=== PATIENT | female | born 1990 ===

== ENCOUNTER 2020-01-13 22:11 | Inpatient (IN) | payer MEDICAID ==
[2020-01-13] MEDS ORDERED: Misoprostol 200 MCG Tab PO PRN (23:37)
[2020-01-13] MEDS ORDERED: Water For Irrigation,Sterile 1,000 ML Container IRR PRN (23:37)
[2020-01-13] MEDS ORDERED: Sodium Chloride 0.9% 10 ML Syringe FLUSH PRN (23:37)
[2020-01-13] MEDS ORDERED: Sodium Chloride 0.9% 10 ML SDV IV PRN (23:37)
[2020-01-13] MEDS ORDERED: Ondansetron 4 MG/2 ML SDV IVPUSH PRN (23:37)
[2020-01-13] MEDS ORDERED: Methylergonovine 0.2 MG/1 ML Amp IM PRN (23:37)
[2020-01-13] MEDS ORDERED: Sodium Chloride 0.9% 2.5 ML Syringe FLUSH PRN (23:37)
[2020-01-13] MEDS ORDERED: Butorphanol 1 MG/ML SDV IVPUSH PRN (23:37)
[2020-01-13] MEDS ORDERED: Carboprost Tromethamine 250 MCG/1 ML Amp IM PRN (23:37)
[2020-01-13] MEDS ORDERED: Lidocaine 1% 50 ML MDV INJECT PRN (23:37)
[2020-01-13] MEDS ORDERED: Tranexamic Acid 1,000 MG in Sodium Chloride 0.9% 100 ML IV PRN (23:37)
[2020-01-13] MEDS ORDERED: Misoprostol 25 MCG (1/4 of 100 MCG) Tab VAG PRN ×2 (23:40)
[2020-01-13] MEDS ORDERED: Terbutaline 1 MG/ML SDV SUBCUT PRN (23:40)
[2020-01-13] MEDS ORDERED: Oxytocin/0.9 % Sodium Chloride 30 UNIT/500 ML BAG IV SCH ×2 (23:45)
[2020-01-13] MEDS ORDERED: Lactated Ringers 1,000 ML IV SCH (23:45)
[2020-01-14] MEDS ORDERED: Witch Hazel Medicated Pads 40/Jar TOP PRN (10:19)
[2020-01-14] MEDS ORDERED: Bisacodyl 10 MG Supp RECTAL PRN (10:19)
[2020-01-14] MEDS ORDERED: Ibuprofen 400 MG Tab PO PRN (10:19)
[2020-01-14] MEDS ORDERED: Benzocaine/Menthol 20%-0.5% Spray 78 GM Cannister TOP PRN (10:19)
[2020-01-14] MEDS ORDERED: Acetaminophen 500 MG Tab PO PRN ×2 (10:19)
[2020-01-14] MEDS ORDERED: Docusate Sodium 100 MG Cap PO PRN (10:19)
[2020-01-14] MEDS ORDERED: Lanolin 100% Cream 7 GM Tube TOP PRN (10:19)
[2020-01-14] MEDS ORDERED: Ibuprofen 800 MG Tab ONE (10:34)
[2020-01-14] MEDS ORDERED: Benzocaine/Menthol 20%-0.5% Spray 78 GM Cannister ONE (10:34)
[2020-01-14] MEDS ORDERED: Witch Hazel Medicated Pads 40/Jar TOP ONE (10:35)
[2020-01-14] MEDS: Ibuprofen 800 MG Tab PO PRN ×2 (10:38→18:32)
--- NOTE | 2020-01-14 19:15 | OR ---
SURGEON: Guillaume Ramirez MD DATE OF PROCEDURE: 01/13/2020 INDICATION FOR PROCEDURE: A 29-year-old G4, P0-2-1-2, presenting for scheduled induction of labor at 39 weeks and 0 days. The patient has a history of 2 prior deliveries at 36 weeks and 31 weeks. This was noted to have a short cervix and received weekly Wheeler injections until 36 weeks. The patient had otherwise uncomplicated . She is GBS negative. She received 2 doses of Cytotec for induction and started progressing quickly on her own to fully dilated. Cat 1 tracing with early decels. PREOPERATIVE DIAGNOSES: 1. Carpenter intrauterine at 39 weeks and 0 days. 2. History of delivery. POSTOPERATIVE DIAGNOSES: 1. Carpenter intrauterine at 39 weeks and 0 days. 2. History of delivery. PROCEDURE PERFORMED: Normal spontaneous vaginal delivery. ANESTHESIA: None. FINDINGS: Viable female . scores of 8 and 9. Weight of 3180g. ESTIMATED BLOOD LOSS: 200 mL. DESCRIPTION OF PROCEDURE: The patient pushed with contractions for approximately 20 minutes with good descent. head delivered over an intact perineum in occiput posterior position, restituted ROT. Anterior shoulder delivered easily followed by posterior shoulder and then remaining body. The baby was pink, crying, and moving all extremities after delivery and placed on maternal chest. Baby was evaluated by awaiting nursery staff. The umbilical cord was clamped and cut after 60 seconds and no longer pulsating. The umbilical cord gases were obtained. Gentle traction was applied to the umbilical cord, and with maternal pushing, the placenta delivered. It was examined and found to be intact with 3- vessel cord. Fundal massage was performed and bleeding was light, and the fundus was below the umbilicus. Perineum was examined and no lacerations were noted. The patient tolerated the procedure well and was given care instructions. ZULEIMA / ADRIENNE /[id number]
[2020-01-15] MEDS: Ibuprofen 800 MG Tab PO PRN (01:18)
--- NOTE | 2020-01-15 07:42 | PCM.PNPP ---
- General Info Date of Service: 01/15/20 Functional Status: Reports: Pain Controlled, Tolerating Diet, Ambulating, Urinating - Review of Systems General: Reports: No Symptoms HEENT: Reports: No Symptoms Pulmonary: Reports: No Symptoms Cardiovascular: Reports: No Symptoms Gastrointestinal: Reports: No Symptoms Genitourinary: Reports: No Symptoms Musculoskeletal: Reports: No Symptoms Skin: Reports: No Symptoms Neurological: Reports: No Symptoms Psychiatric: Reports: No Symptoms - Patient Data Vital Signs - Most Recent: Last Vital Signs Temp 36.4 C 01/15/20 01:35 Pulse 75 01/14/20 15:00 Resp 15 01/15/20 01:35 BP 116/58 L 01/15/20 01:35 Pulse Ox 96 01/15/20 01:35 Weight - Most Recent: 199 lb Lab Results - Last 24 Hours: Laboratory Results - last 24 hr 01/14/20 01/15/20 Range/Units 09:26 06:16 Hgb 11.2 L (12.0-16.0) g/dL Hct 34.7 L (36.0-46.0) % Cord ABG pH 7.157 L (7.18-7.38) Cord ABG Base Excess -7 (-10--2) Cord VBG pH 7.336 (7.25-7.45) Cord VBG Base Excess -5 (-10--2) Med Orders - Current: Current Medications Acetaminophen (Tylenol Extra Strength) 500 mg PO Q4H PRN PRN Reason: Pain Acetaminophen (Tylenol Extra Strength) 1,000 mg PO Q4H PRN PRN Reason: Pain Benzocaine/Menthol (Dermoplast Pain Relief 20%-0.5% [place]) 78 gm TOP ASDIRECTED PRN PRN Reason: Perineal Comfort Measure Last Admin: 01/14/20 10:39 Dose: 1 canister Documented by: Bisacodyl (Dulcolax) 10 mg RECTAL ONETIME PRN PRN Reason: Constipation Butorphanol Tartrate (Stadol) 1 mg IVPUSH Q1H PRN PRN Reason: Pain Carboprost Tromethamine (Hemabate Ds) 250 mcg IM ASDIRECTED PRN PRN Reason: Post Hemorrhage Docusate Sodium (Colace) 100 mg PO BID PRN PRN Reason: Constipation Emollient Ointment (Lansinoh Hpa) 0 gm TOP ASDIRECTED PRN PRN Reason: Sore Nipples Oxytocin/Sodium Chloride (Oxytocin 30 Unit/500 Ml-Ns) 30 unit in 500 mls @ 999 mls/hr IV TITRATE ROSHAN Last Admin: 01/14/20 09:26 Dose: 500 mls/hr Documented by: Tranexamic Acid 1,000 mg/ (Sodium Chloride) 110 mls @ 660 mls/hr IV ONETIME PRN PRN Reason: Bleeding Lactated Ringer's (Ringers, Lactated) 1,000 mls @ 150 mls/hr IV ASDIRECTED ROSHAN Oxytocin/Sodium Chloride (Oxytocin 30 Unit/500 Ml-Ns) 30 unit in 500 mls @ 2 mls/hr IV TITRATE ROSHAN; Protocol Ibuprofen (Motrin) 400 mg PO Q4H PRN PRN Reason: Pain Ibuprofen (Motrin) 800 mg PO Q6H PRN PRN Reason: Pain Last Admin: 01/15/20 01:18 Dose: 800 mg Documented by: Lidocaine HCl (Xylocaine 1%) 50 ml INJECT ONETIME PRN PRN Reason: Laceration repair Methylergonovine Maleate (Methergine) 0.2 mg IM ASDIRECTED PRN PRN Reason: Post Hemorrhage Misoprostol (Cytotec) 200 mcg PO ONETIME PRN PRN Reason: Post Hemorrhage Misoprostol (Cytotec) 25 mcg VAG ONETIME PRN PRN Reason: Cervical Ripening Last Admin: 01/14/20 00:49 Dose: 25 mcg Documented by: Misoprostol (Cytotec) 25 mcg VAG Q4H PRN PRN Reason: Cervical Ripening Last Admin: 01/14/20 05:27 Dose: 25 mcg Documented by: Ondansetron HCl (Zofran) 4 mg IVPUSH Q6H PRN PRN Reason: Nausea/Vomiting Sodium Chloride (Saline Flush) 10 ml FLUSH ASDIRECTED PRN PRN Reason: Keep Vein Open Sodium Chloride (Saline Flush) 2.5 ml FLUSH ASDIRECTED PRN PRN Reason: Keep Vein Open Sodium Chloride (Normal Saline) 10 ml IV ASDIRECTED PRN PRN Reason: IV Use Sterile Water (Sterile Water For Irrigation) 1,000 ml IRR ASDIRECTED PRN PRN Reason: delivery Last Admin: 01/14/20 09:20 Dose: 1,000 ml Documented by: Terbutaline Sulfate (Brethine) 0.25 mg SUBCUT ASDIRECTED PRN PRN Reason: Tacysystole Nneka Mak (Tucks) 1 pad TOP ASDIRECTED PRN PRN Reason: comfort care Last Admin: 01/14/20 10:40 Dose: 1 tub Documented by: Discontinued Medications Benzocaine/Menthol (Dermoplast Pain Relief 20%-0.5% [place]) Confirm Administered Dose 78 gm .ROUTE .STK-MED ONE Stop: 01/14/20 10:35 Ibuprofen (Motrin) Confirm Administered Dose 800 mg .ROUTE .STK-MED ONE Stop: 01/14/20 10:35 Witacacia Vargasel (Tucks) Confirm Administered Dose 1 pad TOP .STK-MED ONE Stop: 01/14/20 10:36 - Infant Interaction Disposition, : [facility] at Bedside Infant Interaction: Holding Infant Feeding: Breastfed ; Nursed Well Support Person: Significant Other - Recovery Exam Fundal Tone: Firm Fundal Level: 1 Fingerbreadths Below Umbilicus Fundal Placement: Midline Lochia Amount: Scant Lochia Color: Rubra/Red Perineum Description: Other (see below) Other Perinuem Description: superficial tears only Bladder Status: Voiding - Exam General: Alert, Oriented, Cooperative, No Acute Distress HEENT: Pupils Equal, Pupils Reactive Neck: Supple, Trachea Midline, No JVD Lungs: Normal Respiratory Effort GI/Abdominal Exam: Normal Bowel Sounds, Soft, Non-Tender, No Distention Extremities: Normal Inspection, Normal Range of Motion, Non-Tender, No Pedal Edema Skin: Warm, Dry, Intact Neurological: No New Focal Deficit Psy/Mental Status: Alert, Normal Affect, Normal Mood - Problem List Review Problem List Initiated/Reviewed/Updated: Yes - My Orders Last 24 Hours: My Active Orders 01/14/20 10:19 Patient Status [ADT] Routine May Shower [RC] ASDIRECTED Up ad Michelle [RC] ASDIRECTED Acetaminophen [Tylenol Extra Strength] 1,000 mg PO Q4H PRN Acetaminophen [Tylenol Extra Strength] 500 mg PO Q4H PRN Benzocaine/Menthol [Dermoplast Pain Relief 20%-0.5% [place]] 78 gm TOP ASDIRECTED PRN Docusate Sodium [Colace] 100 mg PO BID PRN Ibuprofen [Motrin] 400 mg PO Q4H PRN Ibuprofen [Motrin] 800 mg PO Q6H PRN Lanolin [Lansinoh HPA] See Dose Instructions TOP ASDIRECTED PRN bisacodyL [Dulcolax] 10 mg RECTAL ONETIME PRN witch Aubree [Tucks] 1 pad TOP ASDIRECTED PRN Assess Lochia [WOMSER] Per Unit Routine Assess Uterine Involution [WOMSER] Per Unit Routine Breast Pump [WOMSER] Per Unit Routine Peripheral IV Discontinue [OM.PC] Routine 01/14/20 10:20 Ice Therapy [OM.PC] Per Unit Routine Perineal Care [OM.PC] Per Unit Routine - Assessment Assessment:: 29yo PPD1 s/p , stable and recovering well. - Plan Plan:: VSS Hgb 11.2 today, bleeding light, no s/s of anemia ambulating well, tolerating PO well stable for discharge home, reviewed care instructions
[2020-01-15] MEDS ORDERED: Measles, Mumps & Rubella Vaccine 0.5 ML SDV SUBCUT ONE (07:52)
[2020-01-16] MEDS: Ibuprofen 800 MG Tab PO PRN ×2 (08:20→18:44)
--- NOTE | 2020-01-16 08:34 | PCM.PNPP ---
- General Info Date of Service: 01/16/20 Functional Status: Reports: Pain Controlled, Tolerating Diet, Ambulating, Urinating - Review of Systems General: Reports: No Symptoms HEENT: Reports: No Symptoms Pulmonary: Reports: No Symptoms Cardiovascular: Reports: No Symptoms Gastrointestinal: Reports: No Symptoms Genitourinary: Reports: No Symptoms Musculoskeletal: Reports: No Symptoms Skin: Reports: No Symptoms Neurological: Reports: No Symptoms Psychiatric: Reports: No Symptoms - Patient Data Vital Signs - Most Recent: Last Vital Signs Temp 36.3 C 01/16/20 03:15 Pulse 67 01/16/20 03:15 Resp 14 01/16/20 03:15 BP 106/57 L 01/16/20 03:15 Pulse Ox 98 01/16/20 03:15 Weight - Most Recent: 199 lb Med Orders - Current: Current Medications Acetaminophen (Tylenol Extra Strength) 500 mg PO Q4H PRN PRN Reason: Pain Acetaminophen (Tylenol Extra Strength) 1,000 mg PO Q4H PRN PRN Reason: Pain Benzocaine/Menthol (Dermoplast Pain Relief 20%-0.5% [place]) 78 gm TOP ASDIRECTED PRN PRN Reason: Perineal Comfort Measure Last Admin: 01/14/20 10:39 Dose: 1 canister Documented by: Bisacodyl (Dulcolax) 10 mg RECTAL ONETIME PRN PRN Reason: Constipation Butorphanol Tartrate (Stadol) 1 mg IVPUSH Q1H PRN PRN Reason: Pain Carboprost Tromethamine (Hemabate Ds) 250 mcg IM ASDIRECTED PRN PRN Reason: Post Hemorrhage Docusate Sodium (Colace) 100 mg PO BID PRN PRN Reason: Constipation Emollient Ointment (Lansinoh Hpa) 0 gm TOP ASDIRECTED PRN PRN Reason: Sore Nipples Last Admin: 01/15/20 21:11 Dose: 7 gm Documented by: Oxytocin/Sodium Chloride (Oxytocin 30 Unit/500 Ml-Ns) 30 unit in 500 mls @ 999 mls/hr IV TITRATE ROSHAN Last Admin: 01/14/20 09:26 Dose: 500 mls/hr Documented by: Tranexamic Acid 1,000 mg/ (Sodium Chloride) 110 mls @ 660 mls/hr IV ONETIME PRN PRN Reason: Bleeding Lactated Ringer's (Ringers, Lactated) 1,000 mls @ 150 mls/hr IV ASDIRECTED ROSHAN Oxytocin/Sodium Chloride (Oxytocin 30 Unit/500 Ml-Ns) 30 unit in 500 mls @ 2 mls/hr IV TITRATE ROSHAN; Protocol Ibuprofen (Motrin) 400 mg PO Q4H PRN PRN Reason: Pain Ibuprofen (Motrin) 800 mg PO Q6H PRN PRN Reason: Pain Last Admin: 01/16/20 08:20 Dose: 800 mg Documented by: Lidocaine HCl (Xylocaine 1%) 50 ml INJECT ONETIME PRN PRN Reason: Laceration repair Methylergonovine Maleate (Methergine) 0.2 mg IM ASDIRECTED PRN PRN Reason: Post Hemorrhage Misoprostol (Cytotec) 200 mcg PO ONETIME PRN PRN Reason: Post Hemorrhage Misoprostol (Cytotec) 25 mcg VAG ONETIME PRN PRN Reason: Cervical Ripening Last Admin: 01/14/20 00:49 Dose: 25 mcg Documented by: Misoprostol (Cytotec) 25 mcg VAG Q4H PRN PRN Reason: Cervical Ripening Last Admin: 01/14/20 05:27 Dose: 25 mcg Documented by: Ondansetron HCl (Zofran) 4 mg IVPUSH Q6H PRN PRN Reason: Nausea/Vomiting Sodium Chloride (Saline Flush) 10 ml FLUSH ASDIRECTED PRN PRN Reason: Keep Vein Open Sodium Chloride (Saline Flush) 2.5 ml FLUSH ASDIRECTED PRN PRN Reason: Keep Vein Open Sodium Chloride (Normal Saline) 10 ml IV ASDIRECTED PRN PRN Reason: IV Use Sterile Water (Sterile Water For Irrigation) 1,000 ml IRR ASDIRECTED PRN PRN Reason: delivery Last Admin: 01/14/20 09:20 Dose: 1,000 ml Documented by: Terbutaline Sulfate (Brethine) 0.25 mg SUBCUT ASDIRECTED PRN PRN Reason: Tacysystole Witch Aubree (Tucks) 1 pad TOP ASDIRECTED PRN PRN Reason: comfort care Last Admin: 01/14/20 10:40 Dose: 1 tub Documented by: Discontinued Medications Benzocaine/Menthol (Dermoplast Pain Relief 20%-0.5% [place]) Confirm Administered Dose 78 gm .ROUTE .STK-MED ONE Stop: 01/14/20 10:35 Ibuprofen (Motrin) Confirm Administered Dose 800 mg .ROUTE .STK-MED ONE Stop: 01/14/20 10:35 Measles/Mumps/Rubella Vaccine Live (M-M-R Ii Vaccine) 0.5 ml SUBCUT .ONCE ONE Stop: 01/15/20 07:53 Witch Aubree (Tucks) Confirm Administered Dose 1 pad TOP .STK-MED ONE Stop: 01/14/20 10:36 - Interaction Disposition, : [facility] at Bedside Interaction: Holding Infant Feeding: Breastfed Infant; Nursed Well Support Person: Significant Other - Recovery Exam Fundal Tone: Firm Fundal Level: 1 Fingerbreadths Below Umbilicus Fundal Placement: Midline Lochia Amount: Scant Lochia Color: Rubra/Red Perineum Description: Intact, Minimal Bruising/Swelling, Other (see below) Other Perinuem Description: Superficial tears Bladder Status: Voiding Urinary Elimination: Voided - Exam General: Alert, Oriented, Cooperative, No Acute Distress HEENT: Pupils Equal, Pupils Reactive Neck: Supple, Trachea Midline, No JVD Lungs: Normal Respiratory Effort GI/Abdominal Exam: Soft, Non-Tender, No Distention Extremities: Normal Inspection, Normal Range of Motion, Non-Tender, No Pedal Edema Skin: Warm, Dry, Intact Neurological: No New Focal Deficit Psy/Mental Status: Alert, Normal Affect, Normal Mood - Problem List Review Problem List Initiated/Reviewed/Updated: Yes - My Orders Last 24 Hours: My Active Orders 01/15/20 07:52 Vaccines to be Administered [RC] PER UNIT ROUTINE 01/16/20 08:32 Ready for Discharge [RC] PER UNIT ROUTINE - Assessment Assessment:: 29yo PPD2 s/p , stable and recovering well. Baby has elevated bilirubin. - Plan Plan:: VSS Hgb 11.2, bleeding light, no s/s of anemia ambulating well, tolerating PO well baby being monitored for elevated bilirubin, will plan for discharge today.
== END 2020-01-16 22:45 | disposition home or self-care (01) | DRG 807 ==
LOC: MW.OBCHECK 22:11 → MW.OB 22:11 → MW.OBCHECK 23:37 → MW.OB 23:37 → OBSVTOIN 01-14 09:26 → MW.OB 01-14 13:31
PROVIDERS: ADMIT Obstetrics & Gynecology; ATTEND Obstetrics & Gynecology
PROC: 10E0XZZ Delivery of Products of Conception, External Approach (ICD-10-PCS; principal; 2020-01-14)
PROC: 3E0P7VZ Introduction of Hormone into Female Reproductive, Via Natural or Artificial Opening (ICD-10-PCS; 2020-01-14)
PROC: 3E0234Z Introduction of Serum, Toxoid and Vaccine into Muscle, Percutaneous Approach (ICD-10-PCS; 2020-01-14)
DX: O80 Encounter for full-term uncomplicated delivery (principal); Z37.0 Single live birth; Z3A.39 39 weeks gestation of pregnancy; Z11.59 Encounter for screening for other viral diseases; Z23 Encounter for immunization
CPT/HCPCS: 36415; 59025; 59409; 82803; 85014; 85018; 85027; 86592; 86850; 86900; 86901; 90471; 90707; A9270-GY; J2590; U0002